=== PATIENT | female | born 2000 | race Caucasian/White ===

== ENCOUNTER 2020-06-04 21:15 | Emergency (ER) | payer SELFPAY ==
[2020-06-04] MEDS ORDERED: IBUPROFEN 800 MG TABLET PO ONE (21:57)
--- NOTE | 2020-06-04 23:05 | RADIOLOGY REPORT (SQ) ---
EXAM DESCRIPTION: [facility]: XR CHEST 2 VIEWS Views: 2 CLINICAL HISTORY: 20 years Female; Cough, SOB; COMPARISON: None. FINDINGS: Lungs: Lungs are clear, with no focal infiltrate, pneumothorax, or pleural effusion. Mediastinum: Mediastinum is within normal limits for this positioning. Bones: Bony structures are unremarkable. IMPRESSION: 1. No acute cardiothoracic abnormality.
[2020-06-04] MEDS ORDERED: ACETAMINOPHEN 325 MG TABLET PO ONE (23:39)
[2020-06-04] MEDS ORDERED: CEFTRIAXONE 1 GM/D5W RTU 1 GM/50 ML RTUPB IV ONE (23:39)
[2020-06-04] MEDS ORDERED: RINGERS LACTATED IV ONE (23:39)
[2020-06-04 23:44] LABS: ABSOLUTE BASOPHILS # (AUTO) 0.1 10^3/uL (0.0-0.2); ABSOLUTE EOSINOPHILS # (AUTO) 0.1 10^3/uL (0.0-0.6); ABSOLUTE LYMPHOCYTES (AUTO) 0.9 10^3/uL (0.5-4.7); ABSOLUTE MONOCYTES (AUTO) 0.6 10^3/uL (0.1-1.4); ABSOLUTE NEUT (AUTO) 11.1 10^3/uL (1.7-8.2); BASOPHILS % (AUTO) 0.6 % (0-2); EOSINOPHILS % (AUTO) 0.7 % (0-6); HEMATOCRIT 42.4 % (36.0-47.0); HEMOGLOBIN 15.4 g/dL (12.0-15.5); LYMPHOCYTES % (AUTO) 6.9 % (13-45); MEAN CORPUSCULAR HEMOGLOBIN 33.4 pg (27.0-33.4); MEAN CORPUSCULAR HGB CONC 36.3 g/dL (32.0-36.0); MEAN CORPUSCULAR VOLUME 92 fl (80-97); MONOCYTES % (AUTO) 4.9 % (3-13); PLATELET COUNT 331 10^3/uL (150-450); RED BLOOD COUNT 4.61 10^6/uL (3.72-5.28); RED CELL DISTRIBUTION WIDTH 13.3 % (11.5-14.0); SEGMENTED NEUTROPHILS % (AUTO) 86.9 % (42-78); TOTAL CELLS COUNTED % (AUTO) 100 %; WHITE BLOOD COUNT 12.8 10^3/uL (4.0-10.5)
[2020-06-04 23:57] LABS: INTERNATIONAL RATION (INR) 1.05; PROTHROMBIN TIME 13.9 SEC (11.4-15.4)
--- NOTE | 2020-06-05 | ER Document Report ---
ED General - General Chief Complaint: Chest Pain Stated Complaint: FEVER/CHEST PAIN Time Seen by Provider: 06/04/20 23:37 Mode of Arrival: Ambulatory Information source: Patient Notes: Patient is a 20-year-old female who comes the emergency room stating that she has had a temperature to 104.2 today. Patient states that she is just arrived here from [place] and this past she started having fevers in the low 1 that escalated over the past several days up to the 104.2 today. Patient is been alternating Tylenol and Motrin. On of last week she went to a testing station for COVID-19 had a rapid done in [place] at this she states was negative. She went to her primary care provider's office they felt that it was not an adequate sample because of her symptoms and repeated it but she has not gotten the results back of that yet. They are treating her for sinus infec tion on amoxicillin 3 times a day. But she is not getting any better. She also complains of a sore throat chest pain with any exertion she is been tachycardic for several days. Has no cardiac history and no other medical problem history. Patient does not smoke drink or do drugs. Last menstrual period was 1 week ago. She is currently not on control. She does not know any association with anyone with COVID patient does state that for her information she has an allergy to Zithromax and that it has increased her QT prolongation in the past so she does not want to take it. TRAVEL OUTSIDE OF THE [place] IN LAST 30 DAYS: No - HPI Onset: Last week Onset/Duration: Gradual, Persistent, Worse Quality of pain: Achy Severity: Moderate Pain Level: 3 Associated symptoms: Nonproductive cough, Fever, Hurts to breath, Shortness of breath Exacerbated by: Movement, Coughing, Deep breathing Relieved by: Denies Similar symptoms previously: Yes Recently seen / treated by doctor: Yes - Related Data Allergies/Adverse Reactions: azithromycin Adverse Reaction (Verified 06/04/20 23:59) Home Medications: metoprolol 25mg Past Medical History - General Information source: Patient - Social History Smoking Status: Never Smoker Frequency of alcohol use: Occasional Drug Abuse: None Lives with: Family Family History: Reviewed & Not Pertinent Patient has homicidal ideation: No - Past Medical History Cardiac Medical History: Reports: Hx Atrial Fibrillation Past Surgical History: Reports: Hx Oral Surgery Review of Systems - Review of Systems Constitutional: See HPI, Fever EENT: Nose congestion, Nose discharge, Sinus pressure, Sinus discharge, Throat pain, Difficulty swallowing Cardiovascular: See HPI, Heart racing Respiratory: See HPI, Cough, Short of breath Gastrointestinal: No symptoms reported Genitourinary: No symptoms reported Female Genitourinary: No symptoms reported Musculoskeletal: No symptoms reported Skin: No symptoms reported Hematologic/Lymphatic: No symptoms reported Neurological/Psychological: No symptoms reported -: Yes All other systems reviewed and negative Physical Exam - Vital signs Vitals: Temp Pulse Resp BP Pulse Ox 102.5 F H 148 H 22 H 134/90 H 100 06/04/20 21:28 06/04/20 21:28 06/04/20 21:28 06/04/20 21:28 06/04/20 21:28 Interpretation: Tachycardic, Tachypneic, Febrile - Notes Notes: PHYSICAL EXAMINATION: GENERAL: Patient is a well-nourished well-developed 20-year-old female no apparent distress on physical exam this night. She does appear uncomfortable and ill-appearing. HEAD: Atraumatic, normocephalic. EYES: Pupils equal round and reactive to light, extraocular movements intact, conjunctiva are normal. ENT: Examination head and upper airway show nasal mucosa to be moderately erythematous edematous with some rhinorrhea noted yellowish in color. Patient has some mild frontal sinus tenderness to palpation but no maxillary tenderness. Bilateral TMs bulging but no air-fluid levels noted. Examination the posterior pharynx shows moderate amount of erythema no exudates are noted airways patent. NECK: Normal range of motion, supple without lymphadenopathy patient does not display any signs of nuchal rigidity or meningismus LUNGS: Auscultation patient's lungs show bilateral breath sounds decreased throughout no rhonchi rales or wheeze are heard. HEART: Tachycardic rate and rhythm without murmurs ABDOMEN: Soft, nontender, nondistended abdomen. No guarding, no rebound. No masses appreciated. Female : deferred Musculoskeletal: Normal range of motion, no pitting or edema. No cyanosis. NEUROLOGICAL: Normal speech, normal gait. Normal sensory, motor exams PSYCH: Normal mood, normal affect. SKIN: Warm, Dry, normal turgor, no rashes or lesions noted. Course - Re-evaluation Re-evalutation: 06/05/20 03:21 Patient's labs came back looking relatively good. She has just a slightly elevated white count at 11 but other than that patient's urine was clean chest was clean CTA was normal. Her influenza was negative her strep was negative at this point it appears that patient will probably be walking along the lines of the coronavirus. I offered to retest her tonight patient refused because she is just had one done in [place] on this past has not received the results yet. She is also been riding in the car with her entire family so everyone has been exposed. I have informed her that she needs to continue on taking Tylenol and Motrin alternating every 4 hours to keep the fevers down pushing fluids. I explained to her she has low comorbidities with the exception of being overweight patient has no history hypertension diabetes or other medical problems and that she should self isolate more than anything else. I have also informed her should she keep a fever that she can get rid of her unable to keep fluids down to return to ER for reevaluation. Also highly suggested to her follow-up with her PCP first thing in the morning by phone to find out what her prognosis is with the coronavirus. - Vital Signs Vital signs: Temp Pulse Resp BP Pulse Ox 99.3 F 148 H 20 110/86 H 100 06/05/20 01:12 06/04/20 23:35 06/05/20 00:01 06/05/20 00:00 06/05/20 01:11 - Laboratory Result Diagrams: 06/04/20 23:27 06/04/20 23:27 Laboratory results interpreted by me: 06/04/20 06/04/20 06/04/20 23:27 23:27 23:27 WBC 12.8 H MCHC 36.3 H Lymph % (Auto) 6.9 L Absolute Neuts (auto) 11.1 H Seg Neutrophils % 86.9 H VBG pH VBG pCO2 VBG HCO3 Calcium 11.0 H ALT 47 H Total Protein 8.7 H Albumin 5.3 H Urine Blood SMALL H Ur Leukocyte Esterase SMALL H 06/04/20 23:49 WBC MCHC Lymph % (Auto) Absolute Neuts (auto) Seg Neutrophils % VBG pH 7.46 H VBG pCO2 28.3 L VBG HCO3 19.5 L Calcium ALT Total Protein Albumin Urine Blood Ur Leukocyte Esterase Discharge - Discharge Clinical Impression: Fever Qualifiers: Fever type: unspecified Qualified Code(s): R50.9 - Fever, unspecified Condition: Stable Disposition: HOME, SELF-CARE Instructions: Fever ([facility]) Additional Instructions: Home and rest. Medications as like ibuprofen and Tylenol alternating every 4 hours for fever aches and pains. I would highly suggest waking up or sitting o'clock for every 4 hours to take the next dose. Highly suggest taking it increase in fluids as well. Keep sipping at them all the time. As we discussed you are low risk being as young as you are not having hardly no medical problems. However should you spike a fever that will not go away on those medications and are unable to keep any fluids or foods down return to ER for reevaluation. Highly suggest that you contact your PCP first thing in the morning to see if they have the results of that test that he took on . Referrals: [facility] [Provider Group] - Follow up as needed
[2020-06-05 00:09] LABS: ALBUMIN 5.3 g/dL (3.5-5.0); ALKALINE PHOSPHATASE 111 U/L (38-126); ANION GAP 12 (5-19); ASPARTATE AMINO TRANSFERASE 36 U/L (14-36); BILIRUBIN,DIRECT 0.3 mg/dL (0.0-0.4); BILIRUBIN,TOTAL 0.5 mg/dL (0.2-1.3); BLOOD UREA NITROGEN 13 mg/dL (7-20); CARBON DIOXIDE 23 mmol/L (22-30); CHLORIDE 105 mmol/L (98-107); CREATINE KINASE 83 U/L (30-135); GLUCOSE 104 mg/dL (75-110); POTASSIUM 3.9 mmol/L (3.6-5.0); TOTAL PROTEIN 8.7 g/dL (6.3-8.2)
[2020-06-05 00:21] LABS: CREATINE KINASE MB 0.22 ng/mL (<4.55)
[2020-06-05 00:23] LABS: TROPONIN I < 0.012 ng/mL
[2020-06-05 00:31] LABS: VENOUS BLOOD BASE EXCESS -2.8 mmol/L; VENOUS BLOOD HCO3 19.5 mmol/L (20-32); VENOUS BLOOD PCO2 28.3 mmHg (35-63); VENOUS BLOOD PH 7.46 (7.30-7.42)
[2020-06-05 00:36] LABS: APPEARANCE,URINE CLEAR; BILIRUBIN,URINE NEGATIVE (NEGATIVE); COLOR,URINE YELLOW; GLUCOSE, URINE NEGATIVE (NEGATIVE); KETONES,URINE NEGATIVE (NEGATIVE); LEUKOCYTE ESTERASE,URINE SMALL (NEGATIVE); NITRITE,URINE NEGATIVE (NEGATIVE); PROTEIN,URINE NEGATIVE (NEGATIVE); URINE SPECIFIC GRAVITY 1.017; UROBILINOGEN,URINE NEGATIVE mg/dL (<2.0)
--- NOTE | 2020-06-05 00:47 | EKG REPORT ---
SEVERITY:- ABNORMAL ECG - SINUS TACHYCARDIA PROBABLE LEFT ATRIAL ABNORMALITY NONSPECIFIC T ABNORMALITIES, DIFFUSE LEADS : Confirmed by: Teena Vitale MD 05-Jun-2020 00:46:17
[2020-06-05 01:08] LABS: A TYPE INFLUENZA AG NEGATIVE (NEGATIVE); B INFLUENZA AG NEGATIVE (NEGATIVE)
--- NOTE | 2020-06-05 01:21 | RADIOLOGY REPORT (SQ) ---
EXAM DESCRIPTION: CT CHEST ANGIOGRAPHY WITHOUT THEN WITH IV CONTRAST COMPLETED DATE/TME: 06/05/2020 00:25 CLINICAL INDICATION: 20-year-old female with? PE/covid. COMPARISON: None. EXAMINATION: CT angiography of the pulmonary arteries was performed following intravenous administration of contrast. Coronal and bilateral oblique maximum intensity projections (MIPS) were created. This exam was performed according to our departmental dose optimization program which includes use of automated exposure control, adjustment of the mA and/or kV according to patient size and/or use of iterative reconstruction technique. FINDINGS: Chest: Evaluation through the lungs reveals no focal opacity, pleural effusion or pneumothorax. No CT findings to indicate pneumonia. Note: CT may be negative in the early stages of viral pneumonia. [PneNeg] There is minimal dependent basilar atelectasis and scarring. The tracheobronchial airways are patent. No significant mediastinal or axillary lymphadenopathy by CT measurement criteria. Limited evaluation of the upper abdomen shows no acute intra-abdominal abnormalities. The osseous structures are within normal limits. CT angiography: Diagnostic CT angiography of the pulmonary arteries without intraluminal filling defect noted to suggest pulmonary arterial embolus. However, limited the level of the and distal subsegmental pulmonary arteries secondary to motion artifact. IMPRESSION: 1. Diagnostic pulmonary angiography without findings to suggest pulmonary arterial embolus. However, examination findings are limited the level of the distal subsegmental pulmonary arteries secondary to significant motion artifact. The possibility of small embolus, while not identified, cannot be completely excluded. 2. The lungs are clear without focal opacity, pleural effusion or pneumothorax. No CT findings to indicate pneumonia. Note: CT may be negative in the early stages of viral pneumonia. [PneNeg]
[2020-06-05 03:44] VITALS: BP 104/72
== END 2020-06-05 03:48 | disposition home or self-care (01) ==
LOC: ER 21:15
DX: R50.9 Fever, unspecified (principal); R07.9 Chest pain, unspecified; R05 Cough; R06.82 Tachypnea, not elsewhere classified; R09.81 Nasal congestion; R09.89 Other specified symptoms and signs involving the circulatory and respiratory systems; R00.0 Tachycardia, unspecified; R51 Headache; R07.0 Pain in throat; R13.10 Dysphagia, unspecified; Z88.1 Allergy status to other antibiotic agents; Z79.899 Other long term (current) drug therapy
CPT/HCPCS: 93005; 99285; 96361; 96365; 36415; 87040; 87070; 87086; 82553; 87880; 82550; 83605; 85025; 85610; 87077; 80053; 81001; 84484; 82803; 87804; 87150 ×26; 71046; 71275; 93010; J7120; J0696